=== PATIENT | female | born 1980 | race Caucasian/White ===

== ENCOUNTER 2017-12-02 17:02 | Emergency (ER) | payer OTHER | END 2017-12-02 17:43 | disposition home or self-care (01) | LOC: E/R 17:43 | DX: J20.9 Acute bronchitis, unspecified (principal) | CPT/HCPCS: 99284 ==

== ENCOUNTER → 2018-08-10 | Emergency (ER) | payer OTHER ==
[2018-08-10 22:16] LABS: ADD MAN DIFF? NO
[2018-08-10 22:18] LABS: BASOPHIL # 0.1 10^3/ul (0.0-0.1); BASOPHILS % 0.6 % (0.0-2.0); EOSINOPHILS # 0.1 10^3/ul (0.0-0.5); EOSINOPHILS % 1.5 % (0.0-7.0); HEMATOCRIT 33.4 % (37.0-47.0); HEMOGLOBIN 10.9 g/dl (12.0-16.0); LYMPHOCYTES # 2.9 10^3/ul (0.8-2.9); LYMPHOCYTES % 30.8 % (15.0-51.0); MEAN CORPUSCULAR HEMOGLOBIN 30.6 pg (29.0-33.0); MEAN CORPUSCULAR HGB CONC 32.6 g/dl (32.0-37.0); MEAN CORPUSCULAR VOLUME 93.8 fl (82.0-101.0); MEAN PLATELET VOLUME 9.3 fl (7.4-10.4); MONOCYTE # 0.6 10^3/ul (0.3-0.9); MONOCYTES % 6.2 % (0.0-11.0); NEUTROPHIL # 5.7 10^3/ul (1.6-7.5); NEUTROPHILS % 60.6 % (39.0-77.0); PLATELET COUNT 245 10^3/UL (140-415); RED BLOOD COUNT 3.56 10^6/ul (4.20-5.40); RED CELL DISTRIBUTION WIDTH 12.9 % (11.5-14.5)
[2018-08-10 22:18] LABS: WHITE BLOOD COUNT 9.4 10^3/ul (4.8-10.8)
[2018-08-10 22:36] LABS: ANION GAP 6 (5-13); BLOOD UREA NITROGEN 16 mg/dl (7-20); CALCIUM 8.4 mg/dl (8.4-10.2); CARBON DIOXIDE 25 mmol/L (21-31); CHLORIDE 106 mmol/L (97-110); CREATININE 0.72 mg/dl (0.44-1.00); Estimated GFR > 60 mL/min (>60); GLUCOSE 121 mg/dl (70-220); POTASSIUM 3.4 mmol/L (3.5-5.1); SODIUM 137 mmol/L (135-144)
[2018-08-10 22:48] LABS: TROPONIN-I < 0.012 ng/ml (0.000-0.120)
== END | disposition left against medical advice (07) ==
LOC: FTE 20:42
DX: G89.18 Other acute postprocedural pain (principal); R07.9 Chest pain, unspecified
CPT/HCPCS: 80048; 84484; 85025; 93005; 99284-25

== ENCOUNTER 2019-02-26 02:11 | Emergency (ER) | payer OTHER ==
[2019-02-26] MEDS: DEXAMETHASONE 10 MG/ML 1 ML INJ IM (05:10)
[2019-02-26] MEDS: ONDANSETRON (ODT) 4 MG TAB ODT ×2 (05:37→05:48)
[2019-02-26] MEDS: HYDROCODONE/APAP (5/325) TAB PO ×2 (05:37→05:49)
== END 2019-02-26 06:18 | disposition home or self-care (01) ==
LOC: FTE 02:11
DX: M25.561 Pain in right knee (principal)
CPT/HCPCS: 96372; 99284-25